=== PATIENT | female | born 1985 | race Caucasian/White ===

== ENCOUNTER → 2018-08-04 08:14 | Outpatient (CLI) | payer OTHER, MEDICAID, SELFPAY ==
[2018-08-04 11:14] LABS: Thyroid Stimulating Hormone 0.68 uIU/mL (0.47-4.68)
[2018-08-06 13:19] LABS: 1 25 Dihydroxy Vitamin D 25 pg/mL (18-72)
== END ==
PROVIDERS: PCP Family Medicine; Visit Provider Family Medicine
DX: E55.9 Vitamin D deficiency, unspecified (principal); E03.9 Hypothyroidism, unspecified
CPT/HCPCS: 36415; 82652; 84443

== ENCOUNTER → 2018-08-16 16:37 | Outpatient (CLI) | payer OTHER, MEDICAID, SELFPAY | PROVIDERS: PCP Family Medicine; Visit Provider Family Medicine | DX: Z01.84 Encounter for antibody response examination (principal) | CPT/HCPCS: 36415; 86787 ==

== ENCOUNTER → 2019-07-13 07:47 | Outpatient (CLI) | payer OTHER, SELFPAY ==
[2019-07-13 08:21] LABS: Add Manual Diff / Slide Review NO; Basophils Absolute Auto 0 /uL (0-100); Basophils Percent Auto 0.3 % (0-2); Eosinophils Absolute Auto 200 /uL (0-450); Eosinophils Percent Auto 3.3 % (2-4); Hematocrit 41.1 % (36-46); Hemoglobin 13.9 g/dL (12.0-16.0); Lymphocytes Absolute Auto 1900 /uL (1100-4500); Lymphocytes Percent Auto 35.6 % (25-40); Mean Corpuscular HGB Conc 33.8 % (30-36); Mean Corpuscular Hemoglobin 30.3 PG (26-34); Mean Corpuscular Volume 89.6 fL (80-100); Monocytes Absolute Auto 400 /uL (0-900); Monocytes Percent Auto 7.4 % (3-14); Neutrophils Absolute Auto 2800 /uL (1500-7000); Neutrophils Percent Auto 53.4 % (50-75); Platelet Count 214 X10^3/uL (150-400); Red Blood Cell Count 4.58 X10^6/uL (4.0-5.2); Red Cell Distribution Width 13.2 % (11.6-14.8); White Blood Cell Count 5.3 X10^3/uL (4.5-11.0)
[2019-07-13 08:51] LABS: Alanine Aminotransferase 17 IU/L (<35); Albumin 4.4 g/dL (3.5-5.0); Albumin Globulin Ratio 1.6 (1.0-2.8); Alkaline Phosphatase 35 U/L (38-126); Aspartate Aminotransferase 26 IU/L (14-36); BUN Creatinine Ratio 21.7 (6-22); Bilirubin Total 0.5 mg/dL (0.2-1.3); Blood Urea Nitrogen 13 mg/dL (7-17); Calcium 9.3 mg/dL (8.4-10.2); Carbon Dioxide 31 mmol/L (22-32); Chloride 102 mmol/L (98-107); Cholesterol 192 mg/dL (140-199); Estimated Glomerular Filt Rate > 60.0 mL/min (>60); Globulin 2.8 g/dL (1.7-4.1); Glucose 98 mg/dL (70-100); HDL Cholesterol 63 mg/dL (40-60); HEMOLYSIS < 15 (0-50); LDL Cholesterol Calculated 115 mg/dL (<100); Potassium 4.5 mmol/L (3.4-5.1); Sodium 140 mmol/L (137-145); Total Protein 7.2 g/dL (6.3-8.2); Triglycerides 69 mg/dL (35-150)
[2019-07-13 09:13] LABS: Free T3, Triiodothyronine Free 3.17 pg/mL (2.77-5.27); Free T4, Direct Thyroxine 1.12 ng/dL (0.78-2.19)
[2019-07-13 09:27] LABS: Thyroid Stimulating Hormone 5.17 uIU/mL (0.47-4.68)
== END ==
PROVIDERS: PCP Family Medicine; Visit Provider Family Medicine
DX: E03.9 Hypothyroidism, unspecified (principal)
CPT/HCPCS: 36415; 80053; 80061; 84439; 84443; 84481; 85025

== ENCOUNTER → 2020-03-23 10:28 | Outpatient (CLI) | payer OTHER, SELFPAY ==
[2020-03-23 11:10] LABS: Add Manual Diff / Slide Review NO; Basophils Absolute Auto 0 /uL (0-100); Basophils Percent Auto 0.5 % (0-2); Eosinophils Absolute Auto 100 /uL (0-450); Eosinophils Percent Auto 1.8 % (2-4); Hematocrit 40.4 % (36-46); Hemoglobin 13.5 g/dL (12.0-16.0); Lymphocytes Absolute Auto 2100 /uL (1100-4500); Lymphocytes Percent Auto 39.5 % (25-40); Mean Corpuscular HGB Conc 33.4 % (30-36); Mean Corpuscular Hemoglobin 29.2 PG (26-34); Mean Corpuscular Volume 87.3 fL (80-100); Monocytes Absolute Auto 400 /uL (0-900); Monocytes Percent Auto 8.1 % (3-14); Neutrophils Absolute Auto 2700 /uL (1500-7000); Neutrophils Percent Auto 50.1 % (50-75); Platelet Count 218 X10^3/uL (150-400); Red Blood Cell Count 4.63 X10^6/uL (4.0-5.2); Red Cell Distribution Width 12.8 % (11.6-14.8); White Blood Cell Count 5.4 X10^3/uL (4.5-11.0)
[2020-03-23 11:40] LABS: Cholesterol 167 mg/dL (140-199); Glucose 94 mg/dL (70-100); HDL Cholesterol 57 mg/dL (40-60); LDL Cholesterol Calculated 97 mg/dL (<100); Triglycerides 67 mg/dL (35-150)
[2020-03-26 15:45] LABS: Thyroid Stimulating Hormone < 0.015 uIU/mL (0.47-4.68)
== END ==
PROVIDERS: PCP Family Medicine; Referring Provider Family Medicine; Visit Provider Family Medicine
DX: Z13.220 Encounter for screening for lipoid disorders (principal); E55.9 Vitamin D deficiency, unspecified; Z13.1 Encounter for screening for diabetes mellitus; Z13.0 Encounter for screening for diseases of the blood and blood-forming organs and certain disorders involving the immune mechanism
CPT/HCPCS: 36415; 80061; 82306; 82947; 84443; 85025

== ENCOUNTER → 2020-04-09 10:34 | Outpatient (CLI) | payer OTHER, SELFPAY ==
[2020-04-11 22:36] LABS: QuantiFERON Mitogen Value 6.68 IU/mL (.); QuantiFERON Nil Value 0.11 IU/mL (.); QuantiFERON TB Gold Plus Negative (Negative); QuantiFERON TB1 Ag Value 0.23 IU/mL (.); QuantiFERON TB2 Ag Value 0.12 IU/mL (.)
== END ==
PROVIDERS: PCP Family Medicine; Referring Provider Family Medicine; Visit Provider Family Medicine
DX: Z11.9 Encounter for screening for infectious and parasitic diseases, unspecified (principal); Z02.1 Encounter for pre-employment examination
CPT/HCPCS: 36415; 86480

== ENCOUNTER → 2020-06-13 11:38 | Outpatient (CLI) | payer OTHER, SELFPAY ==
[2020-06-13 14:52] LABS: Thyroid Stimulating Hormone < 0.015 uIU/mL (0.47-4.68)
== END ==
PROVIDERS: PCP Family Medicine; Referring Provider Family Medicine; Visit Provider Family Medicine
DX: E03.9 Hypothyroidism, unspecified (principal)
CPT/HCPCS: 36415; 84443

== ENCOUNTER → 2020-07-02 12:29 | Outpatient (CLI) | payer OTHER, SELFPAY ==
[2020-07-02 13:11] LABS: Add Manual Diff / Slide Review NO; Basophils Absolute Auto 0 /uL (0-100); Basophils Percent Auto 0.2 % (0-2); Eosinophils Absolute Auto 100 /uL (0-450); Eosinophils Percent Auto 0.9 % (2-4); Hematocrit 40.2 % (36-46); Hemoglobin 13.3 g/dL (12.0-16.0); Lymphocytes Absolute Auto 1900 /uL (1100-4500); Lymphocytes Percent Auto 28.8 % (25-40); Mean Corpuscular HGB Conc 33.1 % (30-36); Mean Corpuscular Hemoglobin 29.2 PG (26-34); Mean Corpuscular Volume 88.3 fL (80-100); Monocytes Absolute Auto 500 /uL (0-900); Monocytes Percent Auto 7.2 % (3-14); Neutrophils Absolute Auto 4100 /uL (1500-7000); Neutrophils Percent Auto 62.9 % (50-75); Platelet Count 213 X10^3/uL (150-400); Red Blood Cell Count 4.55 X10^6/uL (4.0-5.2); Red Cell Distribution Width 13.6 % (11.6-14.8); White Blood Cell Count 6.5 X10^3/uL (4.5-11.0)
[2020-07-02 13:20] LABS: Appearance Urine UA CLEAR; Bilirubin Urine UA NEGATIVE (NEGATIVE); Color Urine UA YELLOW; Glucose Urine UA NEGATIVE (Negative); Ketones Urine UA NEGATIVE (NEGATIVE); Leukocyte Esterase Urine UA NEGATIVE (NEGATIVE); Nitrite Urine UA NEGATIVE (Negative); Occult Blood Urine UA NEGATIVE (Negative); Protein Urine UA NEGATIVE (Negative); Specific Gravity Urine UA <=1.005 (1.000-1.035); Urobilinogen Urine UA 0.2 E.U./dL (0.2)
[2020-07-02 14:06] LABS: Hepatitis B Surface Antigen NEGATIVE s/c (NEGATIVE); Rubella Antibody IgG 10.9 IU/mL (>15)
[2020-07-02 14:30] LABS: HIV 1 & 2 Ab/Ag 4th Gen Combo NEGATIVE (NEGATIVE); Hep C Virus Ab w/Reflex Quant NEGATIVE s/c (NEGATIVE)
[2020-07-03 06:09] LABS: RPR Screen Non Reactive (Non Reactive)
[2020-07-03 10:36] LABS: Varicella IgG Antibody 542 index (Immune >165)
== END ==
PROVIDERS: PCP Family Medicine; Referring Provider Family Medicine; Visit Provider Family Medicine
DX: Z34.81 Encounter for supervision of other normal pregnancy, first trimester (principal)
CPT/HCPCS: 36415; 80055; 81003; 86787; 86803; 86850; 86900; 86901; 87086; 87389

== ENCOUNTER → 2020-07-17 08:53 | Outpatient (CLI) | payer OTHER, SELFPAY ==
[2020-07-18 02:52] LABS: Triiodothyronine T3 Total 129 ng/dL (71-180)
[2020-07-18 22:36] LABS: Anti Thyroglobulin Antibody 1.2 IU/mL (0.0-0.9); Thyroid Peroxidase Antibodies 10 IU/mL (0-34)
== END ==
PROVIDERS: PCP Family Medicine; Referring Provider Family Medicine; Visit Provider Family Medicine
DX: E03.9 Hypothyroidism, unspecified (principal)
CPT/HCPCS: 36415; 84436; 84443; 84480; 86376; 86800

== ENCOUNTER → 2020-08-06 10:03 | Outpatient (CLI) | payer OTHER, SELFPAY ==
[2020-08-06 10:32] LABS: COVID19 -Nasal RAPID POSITIVE (Negative)
== END ==
PROVIDERS: PCP Family Medicine; Visit Provider Family Medicine
DX: U07.1 COVID-19 (principal)
CPT/HCPCS: 87635

== ENCOUNTER → 2020-08-15 09:08 | Outpatient (CLI) | payer OTHER, SELFPAY ==
[2020-08-15 10:42] LABS: Thyroid Stimulating Hormone 3.62 uIU/mL (0.47-4.68)
== END ==
PROVIDERS: PCP Family Medicine; Referring Provider Family Medicine; Visit Provider Family Medicine
DX: E03.9 Hypothyroidism, unspecified (principal)
CPT/HCPCS: 36415; 84443

== ENCOUNTER → 2020-09-10 11:12 | Outpatient (CLI) | payer OTHER, SELFPAY | PROVIDERS: PCP Family Medicine; Referring Provider Family Medicine; Visit Provider Family Medicine | DX: O09.529 Supervision of elderly multigravida, unspecified trimester (principal); Z3A.18 18 weeks gestation of pregnancy | CPT/HCPCS: 36415; 81420 ==

== ENCOUNTER → 2020-09-27 09:15 | Outpatient (CLI) | payer OTHER, SELFPAY ==
--- NOTE | 2020-09-27 09:16 | DI.US.S_ITS ---
PROCEDURE: US OB >= 14 WEEKS FETUS INDICATIONS: ANATOMY OUTSIDE/PRIOR DATING DATA: Last menstrual period (LMP): Unknown. LMP-based estimated date of delivery (NESTOR): Unknown. First dating scan (date and location): 09/27/2020. Estimated date of delivery (NESTOR) from first dating scan: 02/05/2021. TECHNIQUE: Real-time scanning was performed of the fetus, with image documentation and biometric measurements. Endovaginal scanning: Not performed COMPARISON: None. FINDINGS: General: A single living intrauterine gestation is present. Presentation: Variable. Placenta: Placental position is posterior, without previa. Amniotic fluid index: 12.9 cm, normal range is 5-24 cm. Largest pocket 3.6 cm. heart rate: 152 beats per minute. Maternal cervical canal: 3.7 cm long. Normal lower limit is 2.5 cm. biometrics: Biparietal diameter: 5.2 cm, 21 weeks 4 days Head circumference: 18.7 cm, 21 weeks 0 days Abdominal circumference: 16.7 cm, 21 weeks 5 days Femur length: 3.5 cm, 20 weeks 6 days Estimated gestational age from initial scan: not applicable. Composite gestational age from present scan: 21 weeks 2 days Estimated weight and percentile: 415 g. Measurement variability for biometric dating: +/- 7 days from 14 weeks to 15 weeks 6 days gestation, +/- 10 days from 16 weeks to 21 weeks 6 days gestation, +/- 2 weeks from 22 weeks to 27 weeks 6 days gestation, +/- 3 weeks for 28 weeks gestation or later. weight reference: 4500 g or EFW >90/95% is considered macrosomia or large for gestational age. EFW <10% is small for gestational age. EFW 5% or less is considered intra-uterine growth restriction. Anatomic survey: Neuro: Ventricles are non-dilated at less than 10 mm. Cisterna magna is normal at 3-11 mm. Cerebellum is normal in size and morphology. Nuchal skin fold: Normal at less than 6 mm between 14-21 weeks gestational age. Face: Nose and lips, facial profile are normal. Spine: No evidence for spina bifida. Heart: 4-chambered heart is present, with normal ventricular outflow tracts. Diaphragm: Diaphragm is intact. Stomach: Left-sided stomach is present. Kidneys: No hydronephrosis. Normal is less than 5 mm in 2nd trimester, less than 7 mm in 3rd trimester. Cord: 3-vessel cord has orthotopic insertion. Bladder: Normal in size. Extremities: All 4 extremities identified. IMPRESSION: 1. Banks living intrauterine at 21 weeks 2 days based on today's ultrasound. 2. Normal placenta and amniotic fluid. 3. Normal and complete anatomic survey. Dictated by: Junaid Bose M.D. on 09/27/2020 at 11:27 Approved by: Junaid Bose M.D. on 09/27/2020 at 11:31
== END ==
PROVIDERS: PCP Family Medicine; Referring Provider Family Medicine; Visit Provider Family Medicine
DX: Z34.82 Encounter for supervision of other normal pregnancy, second trimester (principal); Z3A.20 20 weeks gestation of pregnancy
CPT/HCPCS: 76811

== ENCOUNTER → 2020-11-08 09:24 | Outpatient (CLI) | payer OTHER, SELFPAY ==
[2020-11-08 11:40] LABS: Hematocrit 35.4 % (36-46)
[2020-11-08 12:09] LABS: GTT (PREG) 1 Hour PP 50gm Dose 104 mg/dL (76-139)
[2020-11-08 12:54] LABS: Thyroid Stimulating Hormone 3.78 uIU/mL (0.47-4.68)
== END ==
PROVIDERS: PCP Family Medicine; Referring Provider Family Medicine; Visit Provider Family Medicine
DX: Z34.90 Encounter for supervision of normal pregnancy, unspecified, unspecified trimester (principal); E03.9 Hypothyroidism, unspecified
CPT/HCPCS: 82950; 84443; 85014; 85018

== ENCOUNTER → 2020-11-13 15:38 | Outpatient (CLI) | payer OTHER, SELFPAY ==
--- NOTE | 2020-11-13 15:39 | DI.US.S_ITS ---
PROCEDURE: US OB LIMITED INDICATIONS: SIZE > DATES OUTSIDE/PRIOR DATING DATA: First dating scan (date and location): 09/27/2020 . Estimated date of delivery (NESTOR) from first dating scan: 02/05/2021 . TECHNIQUE: Real-time scanning was performed of the fetus, with image documentation and biometric measurements. Endovaginal scanning: No COMPARISON: [facility], , OB >= 14 WEEKS FETUS, 09/27/2020, 9:38. FINDINGS: General: A single living intrauterine gestation is present. Presentation: Variable. Placenta: Placental position is posterior , without previa. Amniotic fluid index: 20.6 cm, normal range is 5-24 cm. heart rate: 135 beats per minute. Maternal cervical canal: 4.1 cm long. Normal lower limit is 2.5 cm. biometrics: Biparietal diameter: 29 weeks 3 days Head circumference: 29 weeks 5 Abdominal circumference: 32 weeks 2 days Femur length: 29 weeks Estimated gestational age from initial scan: 28 weeks Composite gestational age from present scan: 30 weeks 1 day Estimated weight and percentile: 1644 g; greater than the 99th percentile Measurement variability for biometric dating: +/- 7 days from 14 weeks to 15 weeks 6 days gestation, +/- 10 days from 16 weeks to 21 weeks 6 days gestation, +/- 2 weeks from 22 weeks to 27 weeks 6 days gestation, +/- 3 weeks for 28 weeks gestation or later. weight reference: 4500 g or EFW >90/95% is considered macrosomia or large for gestational age. EFW <10% is small for gestational age. EFW 5% or less is considered intra-uterine growth restriction. Other: Not applicable. IMPRESSION: Single living IUP redemonstrated and estimated weight is greater than the 99th percentile and macrosomia cannot be excluded. Recommend close clinical correlation and follow-up. Dictated by: Rayshawn DAVIS Interpreted: Latasha Perez MD on 11/13/2020 at 16:25 Approved by: Latasha Perez M.D. on 11/13/2020 at 17:02
== END ==
PROVIDERS: PCP Family Medicine; Referring Provider Family Medicine; Visit Provider Family Medicine
DX: O26.843 Uterine size-date discrepancy, third trimester (principal); Z3A.30 30 weeks gestation of pregnancy
CPT/HCPCS: 76815

== ENCOUNTER → 2020-11-30 09:59 | Outpatient (CLI) | payer OTHER, SELFPAY ==
[2020-11-30 11:17] LABS: Thyroid Stimulating Hormone 4.24 uIU/mL (0.47-4.68)
== END ==
PROVIDERS: PCP Family Medicine; Referring Provider Family Medicine; Visit Provider Family Medicine
DX: E03.9 Hypothyroidism, unspecified (principal)
CPT/HCPCS: 36415; 84443

== ENCOUNTER → 2020-12-31 10:47 | Outpatient (CLI) | payer OTHER, SELFPAY ==
[2021-01-01 07:49] LABS: Strep Grp B PCR POS for Grp B Strep
== END ==
PROVIDERS: PCP Family Medicine; Visit Provider Family Medicine
DX: Z34.90 Encounter for supervision of normal pregnancy, unspecified, unspecified trimester (principal); Z3A.35 35 weeks gestation of pregnancy
CPT/HCPCS: 87653

== ENCOUNTER 2021-01-07 10:59 | Observation (INO) | payer OTHER, SELFPAY ==
--- NOTE | 2021-01-07 11:39 | P.TNLD_ITS ---
Visit Information Visit Information Date of evaluation: 01/07/21 Primary OB Provider: Rosa Kinsey Reason for Evaluation: Yes non-stress test Vital Signs Vital Signs: 35yo at 36w1d here for NST for AMA. PFSH Medical History (Updated 01/07/21 @ 11:40 by Rosa Kinsey MD) Hypothyroidism (~02/2005) depression (~02/2005) Vitamin D deficiency (01/14/16) Surgical History (Updated 06/14/20 @ 19:29 by Meg Norwood) Anesthesia History of third molar tooth extraction (2010) Status post knee surgery (2009) Family History (Updated 06/29/20 @ 10:06 by Elizabeth Wilson RN) Father Diabetes mellitus Congestive heart failure Mother Hypertension Brother Hypertension Obesity Grandfather Stroke Alzheimer's disease Grandmother Family estrangement Grandmother Heart disease Grandfather Family estrangement Social History marital status: number of children: 2 household members: spouse lives independently: Yes caregiver/support person: No housing: house pets and animals: Yes (2 dogs, 2 cats. Feels they are safe w baby.) education level: college occupational status: student current occupational exposures/hazards: No elda/hinduism: Sabianist special elda needs: No seatbelt use: always Smoking Status: Never smoker second hand exposure: No alcohol intake: former substance use type: does not use during the past year weight has: decreased > 10 lbs well-balanced diet: daily or most days Type(s) of exercise: regular exercise frequency: 3-4 times per week Evaluation Evaluation Baseline heart rate: 120 Variability: Moderate (11-25) monitor accelerations: Present Monitor Decelerations: Absent Category of Tracing: Reactive Diagnosis, Plan/Disposition Final Diagnosis (1) Advanced maternal age (AMA) in : Status: Acute (2) 36 weeks gestation of : Status: Acute Plan/Disposition Plan: 35yo at 36w1d here for NST for AMA. Reactive. Continue weekly NST as per MFM recs. OB Disposition: home
== END 2021-01-07 11:45 | disposition home or self-care (01) ==
LOC: LABOR 11:00
PROVIDERS: Admitting Provider Family Medicine; PCP Family Medicine; Referring Provider Family Medicine; Visit Provider Family Medicine
DX: O09.523 Supervision of elderly multigravida, third trimester (principal); Z3A.36 36 weeks gestation of pregnancy
CPT/HCPCS: 59025; G0378; G0379

== ENCOUNTER → 2021-01-08 09:14 | Outpatient (CLI) | payer OTHER, SELFPAY ==
[2021-01-08 09:54] LABS: Add Manual Diff / Slide Review NO; Basophils Absolute Auto 0 /uL (0-100); Basophils Percent Auto 0.2 % (0-2); Eosinophils Absolute Auto 100 /uL (0-450); Eosinophils Percent Auto 0.8 % (2-4); Hematocrit 33.3 % (36-46); Hemoglobin 11.3 g/dL (12.0-16.0); Lymphocytes Absolute Auto 1300 /uL (1100-4500); Lymphocytes Percent Auto 19.8 % (25-40); Mean Corpuscular HGB Conc 33.9 % (30-36); Mean Corpuscular Hemoglobin 28.5 PG (26-34); Mean Corpuscular Volume 83.9 fL (80-100); Monocytes Absolute Auto 600 /uL (0-900); Monocytes Percent Auto 8.9 % (3-14); Neutrophils Absolute Auto 4700 /uL (1500-7000); Neutrophils Percent Auto 70.3 % (50-75); Platelet Count 162 X10^3/uL (150-400); Red Blood Cell Count 3.98 X10^6/uL (4.0-5.2); Red Cell Distribution Width 13.4 % (11.6-14.8); White Blood Cell Count 6.7 X10^3/uL (4.5-11.0)
[2021-01-08 10:40] LABS: Alanine Aminotransferase 12 IU/L (<35); Albumin 3.1 g/dL (3.5-5.0); Albumin Globulin Ratio 1.1 (1.0-2.8); Alkaline Phosphatase 70 U/L (38-126); Aspartate Aminotransferase 22 IU/L (14-36); BUN Creatinine Ratio 15.6 (6-22); Bilirubin Total 0.2 mg/dL (0.2-1.3); Blood Urea Nitrogen 7 mg/dL (7-17); Calcium 9.1 mg/dL (8.4-10.2); Carbon Dioxide 22 mmol/L (22-32); Chloride 105 mmol/L (98-107); Estimated Glomerular Filt Rate > 60.0 mL/min (>60); Globulin 2.7 g/dL (1.7-4.1); Glucose 88 mg/dL (70-100); HEMOLYSIS < 15 (0-50); Potassium 3.9 mmol/L (3.4-5.1); Sodium 133 mmol/L (137-145); Total Protein 5.8 g/dL (6.3-8.2)
== END ==
PROVIDERS: PCP Family Medicine; Referring Provider Family Medicine; Visit Provider Family Medicine
DX: Z34.93 Encounter for supervision of normal pregnancy, unspecified, third trimester (principal); Z82.49 Family history of ischemic heart disease and other diseases of the circulatory system
CPT/HCPCS: 36415; 80053; 85025

== ENCOUNTER 2021-01-14 11:00 | Outpatient (CLI) | payer OTHER, SELFPAY ==
--- NOTE | 2021-01-14 11:03 | PM.OBTRLD ---
Visit Information Visit Information Date of evaluation: 01/14/21 Primary OB Provider: Rosa Kinsey Reason for Evaluation: Yes non-stress test non-stress test reason: other Comments/Additional reasons for admission: 35yo at 37w1d here for NST for AMA. [facility] Medical History (Updated 01/14/21 @ 10:38 by Rosa Kinsey MD) Hypothyroidism (~02/2005) depression (~02/2005) Vitamin D deficiency (01/14/16) Surgical History (Updated 06/14/20 @ 19:29 by Meg Norwood) Anesthesia History of third molar tooth extraction (2010) Status post knee surgery (2009) Family History (Updated 06/29/20 @ 10:06 by Elizabeth Wilson RN) Father Diabetes mellitus Congestive heart failure Mother Hypertension Brother Hypertension Obesity Grandfather Stroke Alzheimer's disease Grandmother Family estrangement Grandmother Heart disease Grandfather Family estrangement Social History marital status: number of children: 2 household members: spouse lives independently: Yes caregiver/support person: No housing: house pets and animals: Yes (2 dogs, 2 cats. Feels they are safe w baby.) education level: college occupational status: student current occupational exposures/hazards: No elda/latter-day: Sabianist special elda needs: No seatbelt use: always Smoking Status: Never smoker second hand exposure: No alcohol intake: former substance use type: does not use during the past year weight has: decreased > 10 lbs well-balanced diet: daily or most days Type(s) of exercise: regular exercise frequency: 3-4 times per week Evaluation Evaluation Baseline heart rate: 120 Variability: Moderate (11-25) monitor accelerations: Present Monitor Decelerations: Absent Category of Tracing: Reactive Diagnosis, Plan/Disposition Final Diagnosis (1) 37 weeks gestation of : Status: Acute (2) Advanced maternal age (AMA) in : Status: Acute Plan/Disposition Plan: 35yo at 37w1d here for NST for AMA. Reactive. Continue weekly NST as per M recs. OB Disposition: home
== END 2021-01-14 11:30 | disposition home or self-care (01) ==
LOC: OB 01-17 10:36
PROVIDERS: PCP Family Medicine; Referring Provider Family Medicine; Visit Provider Family Medicine
DX: O09.523 Supervision of elderly multigravida, third trimester (principal); Z3A.37 37 weeks gestation of pregnancy
CPT/HCPCS: 59025; 82570; 84156; G0378; G0379

== ENCOUNTER 2021-01-21 10:49 | Outpatient (CLI) | payer OTHER, SELFPAY ==
--- NOTE | 2021-01-21 11:39 | P.TNLD_ITS ---
Visit Information Visit Information Date of evaluation: 01/21/21 Primary OB Provider: Rosa Kinsey Reason for Evaluation: Yes non-stress test Comments/Additional reasons for admission: 35yo at 38w1d here for NST for AMA. [facility] Medical History (Updated 01/21/21 @ 10:42 by Rosa Kinsey MD) Hypothyroidism (~02/2005) depression (~02/2005) Vitamin D deficiency (01/14/16) Surgical History (Updated 06/14/20 @ 19:29 by Meg Norwood) Anesthesia History of third molar tooth extraction (2010) Status post knee surgery (2009) Family History (Updated 06/29/20 @ 10:06 by Elizabeth Wilson RN) Father Diabetes mellitus Congestive heart failure Mother Hypertension Brother Hypertension Obesity Grandfather Stroke Alzheimer's disease Grandmother Family estrangement Grandmother Heart disease Grandfather Family estrangement Social History marital status: number of children: 2 household members: spouse lives independently: Yes caregiver/support person: No housing: house pets and animals: Yes (2 dogs, 2 cats. Feels they are safe w baby.) education level: college occupational status: student current occupational exposures/hazards: No elda/holiness: Jain special elda needs: No seatbelt use: always Smoking Status: Never smoker second hand exposure: No alcohol intake: former substance use type: does not use during the past year weight has: decreased > 10 lbs well-balanced diet: daily or most days Type(s) of exercise: regular exercise frequency: 3-4 times per week Evaluation Evaluation Baseline heart rate: 125 Variability: Moderate (11-25) monitor accelerations: Present Monitor Decelerations: Absent Category of Tracing: Reactive Diagnosis, Plan/Disposition Final Diagnosis (1) 38 weeks gestation of : Status: Acute (2) Advanced maternal age (AMA) in : Status: Acute Plan/Disposition Plan: 35yo at 37w1d here for NST for AMA. Reactive NST. OB Disposition: home
== END 2021-01-21 11:44 | disposition home or self-care (01) ==
LOC: LABOR 11:18 → OB 01-22 06:44
PROVIDERS: PCP Family Medicine; Referring Provider Family Medicine; Visit Provider Family Medicine
DX: O09.523 Supervision of elderly multigravida, third trimester (principal); Z3A.37 37 weeks gestation of pregnancy
CPT/HCPCS: 59025; G0378; G0379

== ENCOUNTER 2021-01-28 11:03 | Outpatient (CLI) | payer OTHER, SELFPAY ==
--- NOTE | 2021-01-28 11:30 | PM.OBTRLD ---
Visit Information Visit Information Date of evaluation: 01/28/21 Primary OB Provider: Rosa Kinsey Reason for Evaluation: Yes non-stress test non-stress test reason: other Comments/Additional reasons for admission: 35yo at 39w1d here for NST for AMA. [facility] Medical History (Updated 01/28/21 @ 16:54 by Rosa Kinsey MD) Hypothyroidism (~02/2005) depression (~02/2005) Vitamin D deficiency (01/14/16) Surgical History (Updated 06/14/20 @ 19:29 by Meg Norwood) Anesthesia History of third molar tooth extraction (2010) Status post knee surgery (2009) Family History (Updated 06/29/20 @ 10:06 by Elizabeth Wilson RN) Father Diabetes mellitus Congestive heart failure Mother Hypertension Brother Hypertension Obesity Grandfather Stroke Alzheimer's disease Grandmother Family estrangement Grandmother Heart disease Grandfather Family estrangement Social History marital status: number of children: 2 household members: spouse lives independently: Yes caregiver/support person: No housing: house pets and animals: Yes (2 dogs, 2 cats. Feels they are safe w baby.) education level: college occupational status: student current occupational exposures/hazards: No elda/spiritism: Yazidism special elda needs: No seatbelt use: always Smoking Status: Never smoker second hand exposure: No alcohol intake: former substance use type: does not use during the past year weight has: decreased > 10 lbs well-balanced diet: daily or most days Type(s) of exercise: regular exercise frequency: 3-4 times per week Evaluation Evaluation Baseline heart rate: 120 Variability: Moderate (11-25) monitor accelerations: Present Monitor Decelerations: Absent Category of Tracing: Reactive Diagnosis, Plan/Disposition Final Diagnosis (1) Advanced maternal age (AMA) in : Status: Acute (2) 39 weeks gestation of : Status: Acute Plan/Disposition Plan: 35yo at 39w1d here for NST for AMA. NST reactive. F/U as scheduled. OB Disposition: home
== END 2021-01-28 12:00 | disposition home or self-care (01) ==
LOC: LABOR 11:32 → OB 01-29 07:22
PROVIDERS: PCP Family Medicine; Referring Provider Family Medicine; Visit Provider Family Medicine
DX: O09.523 Supervision of elderly multigravida, third trimester (principal); Z3A.39 39 weeks gestation of pregnancy
CPT/HCPCS: 59025; G0378; G0379

== ENCOUNTER 2021-02-05 17:57 | Inpatient (IN) | payer OTHER, SELFPAY ==
[2021-02-05] MEDS: miSOPROStoL 25 MCG TABLET VAG ×2 (18:44→23:50)
[2021-02-05] MEDS: LACTATED RINGERS 1,000 ML 100 ML IV (18:57)
[2021-02-05 19:04] LABS: Add Manual Diff / Slide Review NO; Basophils Absolute Auto 0 /uL (0-100); Basophils Percent Auto 0.4 % (0-2); Eosinophils Absolute Auto 100 /uL (0-450); Eosinophils Percent Auto 0.7 % (2-4); Hematocrit 34.9 % (36-46); Hemoglobin 11.5 g/dL (12.0-16.0); Lymphocytes Absolute Auto 1500 /uL (1100-4500); Lymphocytes Percent Auto 17.3 % (25-40); Mean Corpuscular HGB Conc 32.8 % (30-36); Mean Corpuscular Hemoglobin 27.1 PG (26-34); Mean Corpuscular Volume 82.6 fL (80-100); Monocytes Absolute Auto 700 /uL (0-900); Monocytes Percent Auto 7.7 % (3-14); Neutrophils Absolute Auto 6600 /uL (1500-7000); Neutrophils Percent Auto 73.9 % (50-75); Platelet Count 188 X10^3/uL (150-400); Red Blood Cell Count 4.23 X10^6/uL (4.0-5.2); Red Cell Distribution Width 14.3 % (11.6-14.8); White Blood Cell Count 8.9 X10^3/uL (4.5-11.0)
[2021-02-05 20:05] VITALS: BP 133/74
[2021-02-05 21:24] LABS: COVID19 - ADMIT (NP swab/PCR) Negative (Negative)
[2021-02-06] MEDS: PENICILLIN G POTASSIUM 5,000,000 UNIT in DEXTROSE 5% IN WATER 250 ML IV (03:51)
[2021-02-06] MEDS: miSOPROStoL 25 MCG TABLET VAG (03:52)
--- NOTE | 2021-02-06 07:09 | PM.OBHP.1 ---
OB HPI Date/Time Date of admission: 02/05/21 Date Patient Seen: 02/06/21 History of Present Condition Chief complaint: : 3 Para: 2 Estimated Date of Delivery: 02/03/21 Estimated Gestational Age (weeks): 40w3d Narrative: Betzaida Stroud is a 35 year old at 40w3d here for IOL for AMA as per MFM recommendations. Pt denies LOF, vaginal bleeding, significant contractions. She is feeling her baby move regularly. The pts has been complicated by hypothyroidism, controlled by Levothyroxine. Fetus was noted to be > 99th percentile at 27wk ultrasound completed due to size measuring > dates. M recommended changing the pts due date to 02/03 from 02/08, with normalization of percentiles with the change. Indications Indication for induction OB: other (AMA) History of Present care: good care, initiated at week # (8) and pounds weight gain (58) Dating criteria: based on 1st trimester US only Ultrasounds: normal 1st trimester US and normal mid trimester US Obstetrical complications: other (AMA; LGA - resolved) Medical complications: other (hypothyroidism) Preadmission Labs Blood type: B (+) positive -: Antibody screen: negative, GBS status: positive, HBsAG: negative, HIV: negative and RPR/VDLR: negative -: Rubella: not immune and Varicella: immune HCT: 33.3 HCAB: negative Cell-free DNA: Negative Urine: Negative 1 hr GTT: 104 Prior (ies) History: 01/22/05 - at 40w4d, [id number] female 07/13/15 - at 38w, 7lb male Evaluation Evaluation Baseline heart rate: 120 Variability: Moderate (11-25) monitor accelerations: Present Monitor Decelerations: Absent Status: Category l Cervical dilation (cm): 2 Cervical effacement (%): 80 station: -2 Laboratory results: Laboratory Tests 02/05/21 02/05/21 02/05/21 18:35 18:35 19:25 WBC 8.9 RBC 4.23 Hgb 11.5 L Hct 34.9 L MCV 82.6 MCH 27.1 MCHC 32.8 RDW 14.3 Plt Count 188 Neut % (Auto) 73.9 Lymph % (Auto) 17.3 L Stanley % (Auto) 7.7 Eos % (Auto) 0.7 L Baso % (Auto) 0.4 Neut # (Auto) 6600 Lymph # (Auto) 1500 Stanley # (Auto) 700 Eos # (Auto) 100 Baso # (Auto) 0 SARS-CoV-2 (PCR) Negative Blood Type B Positive Antibody Screen Negative Comments: irregular contractions [facility] Medical History (Updated 02/05/21 @ 10:57 by Rosa Kinsey MD) Hypothyroidism (~02/2005) depression (~02/2005) Vitamin D deficiency (01/14/16) Surgical History (Updated 06/14/20 @ 19:29 by eMg Norwood) Anesthesia History of third molar tooth extraction (2010) Status post knee surgery (2009) Family History (Updated 06/29/20 @ 10:06 by Elizabeth Wilson RN) Father Diabetes mellitus Congestive heart failure Mother Hypertension Brother Hypertension Obesity Grandfather Stroke Alzheimer's disease Grandmother Family estrangement Grandmother Heart disease Grandfather Family estrangement Social History marital status: number of children: 2 household members: spouse lives independently: Yes caregiver/support person: No housing: house pets and animals: Yes (2 dogs, 2 cats. Feels they are safe w baby.) education level: college occupational status: student current occupational exposures/hazards: No elda/taoist: Holiness special elda needs: No seatbelt use: always Smoking Status: Never smoker second hand exposure: No alcohol intake: former substance use type: does not use during the past year weight has: decreased > 10 lbs well-balanced diet: daily or most days Type(s) of exercise: regular exercise frequency: 3-4 times per week Meds Home Medications and Allergies Home Medications Medication Instructions Recorded Confirmed Type cholecalciferol (vitamin D3) 25 25 mcg PO DAILY 06/29/20 02/05/21 History mcg (1,000 unit) capsule prenat.vits,srinivasa,lev-uohy-vsrka 1 tab PO DAILY 06/29/20 02/05/21 History levothyroxine 125 mcg tablet See Rx Instructions .ROUTE 01/31/21 02/05/21 Rx .COMPLEX #30 tab Allergies Allergy/AdvReac Type Severity Reaction Status Date / Time No Known Drug Allergies Allergy Verified 08/29/20 09:26 Exam Const General: cooperative, healthy appearing and comfortable Orientation: alert, awake and oriented x3 Resp Effort & Inspection: normal respiratory effort Auscultation: clear to auscultation bilaterally Cardio Rate: regular rate Rhythm: regular rhythm Heart Sounds: S1 normal, S2 normal and no murmurs GI Inspection: non-distended Palpation: soft and No tender Other: gravid Presentation: vertex Estimated Weight (lbs): 8 Extrem General: no clubbing, cyanosis or edema Objective Labs Result Diagrams: 02/05/21 18:35 Labs: Laboratory Results - last 24 hr 02/05/21 02/05/21 02/05/21 18:35 18:35 19:25 WBC 8.9 RBC 4.23 Hgb 11.5 L Hct 34.9 L MCV 82.6 MCH 27.1 MCHC 32.8 RDW 14.3 Plt Count 188 Neut % (Auto) 73.9 Lymph % (Auto) 17.3 L Stanley % (Auto) 7.7 Eos % (Auto) 0.7 L Baso % (Auto) 0.4 Neut # (Auto) 6600 Lymph # (Auto) 1500 Stanley # (Auto) 700 Eos # (Auto) 100 Baso # (Auto) 0 SARS-CoV-2 (PCR) Negative Blood Type B Positive Antibody Screen Negative Assessment and Plan Assessment and Plan Assessment and Plan narrative: 35yo at 40w3d here for IOL due to AMA. Pt received 2 doses of cytotec overnight. Waters score currently 7. GBS positive, Rh positive. - Expectant management, anticipate - FHT reassuring - GBS positive, penicillin prophylaxis initiated already and adequate - Epidural for pain control when desired - Start pitocin, titrate as tolerated
[2021-02-06] MEDS: PENICILLIN G POTASSIUM 3,000,000 UNIT/50 ML FROZ.PIGGY 100 UNIT IV ×2 (07:43→11:20)
[2021-02-06] MEDS: OXYTOCIN PREMIX 30 UNIT/500 ML PLAST..BAG IV (08:22)
[2021-02-06] MEDS: LACTATED RINGERS 1,000 ML 100 ML IV (12:23)
--- NOTE | 2021-02-06 12:54 | PM.OBPNLAB ---
Date/Time Date Patient Seen: 02/06/21 Time Patient Seen: 12:30 Pain Control Pain control: tolerating well Pelvic Exam Dilation (cm): 3 Effacement (%): 80 station: -2 Amniotic membrane status: Ruptured Comments: After informed consent, AROM performed with production of clear fluid Contractions Monitor mode: External Pitocin rate (mU/min): 5 Contraction frequency (min): 3 Contraction pattern: Irregular Status status: Category l Heart Rate Baseline: 130 Monitor Accelerations: Absent Monitor Decelerations: Absent Monitor Variability: Moderate Assessment and Plan Comments: 35yo at 40w3d here for IOL due to AMA. Pt received 2 doses of cytotec overnight, now on pitocin. AROM performed with production of clear fluid after receiving adequate GBS prophylaxis. GBS positive, Rh positive. - Expectant management, anticipate - FHT reassuring - GBS positive, penicillin prophylaxis initiated already and adequate - Epidural for pain control when desired - Continue pitocin, titrate as tolerated
[2021-02-06] MEDS: fentaNYL 100 MCG/2 ML INJ 50 MCG IV (13:32)
--- NOTE | 2021-02-06 15:57 | P.PCNOB_ITS ---
Labor & Delivery Delivery date: 02/06/21 Intrapartal Events: None Cervical ripening method: per misoprostal protocol Induction method: per pitocin protocol Delivery augmentation: rupture of membranes Delivery monitor: external FHT Route of delivery: Episiotomy description: None L&D Laceration Description: Perineal - 1st Degree Delivery repair: chromic (3-O) Estimated blood loss (mL): 200 Anesthesia Type: Epidural Complications: None Narrative: PROCEDURE: at 40w3d presented for IOL due to AMA and was admitted to Labor and Delivery. She received 2 doses of cytotec for induction. Pitocin was then started, and titrated to a maximum dose of 5mU. The patient progressed through the 1st stage over 2 hours. Pain was controlled with an epidural. After adequate GBS prophlaxis with penicillin, AROM was performed with production of clear fluid. The patient progressed through the 2nd stage over 18 minutes and delivered a viable male with APGARs 8/9 at 15:03 via without complications. Baby was delivered to maternal abdomen and the cord was cut and clamped after it stopped pulsating. The perineum and vagina were inspected with 1st degree laceration repaired with 3-O chromic due to bleeding PREPROCEDURE DIAGNOSIS: Intrauterine at 40w3d Hypothyroidism AMA GBS positive RH positive POSTPROCEDURE DIAGNOSIS: Intrauterine at 40w3d, delivered Same as preprocedure [place] Baby 1: gender: Male Presentation: vertex Position: Left Occiput Anterior Placenta delivery description: Spontaneous Cord Vessel Description: 3 Vessels and Nuchal Cord (x1, reduced at perineum) score (1 min): 8 score (5 min): 9 weight: 8 lb 12 oz Plan for aftercare: Routine care
[2021-02-06] MEDS: IBUPROFEN 600 MG TABLET PO (21:26)
[2021-02-07] MEDS: IBUPROFEN 600 MG TABLET PO ×2 (03:19→09:06)
[2021-02-07] MEDS: ACETAMINOPHEN 325 MG TABLET 650 MG PO (04:45)
[2021-02-07] MEDS: LEVOTHYROXINE 125 MCG TABLET PO (06:03)
--- NOTE | 2021-02-07 08:52 | PM.OBDS.1 ---
Discharge Providers Provider Date of admission: 02/05/21 17:57 Discharge Date: 02/07/21 Primary care physician: Rosa Kinsey MD Consults: 02/07/21 20:31 Consult to Copy Supervisor Routine Comment: Discharge provider: Rosa Kinsey MD Summary Hospital Course Date Patient Seen: 02/07/21 Time Patient Seen: 08:52 Diagnoses: 40w3d gestation GBS positive Rh positive Hypothyroidism Hospital Course: The patient presented for induction of labor for advanced maternal age. She received 2 doses of Cytotec and then Pitocin. AROM was performed with production of clear fluid. She had an epidural for pain control. She progressed to complete and had a spontaneous vaginal delivery of a viable baby boy. A first-degree perineal laceration was then repaired for hemostasis. Patient tolerated delivery well. , there were no complications. At the time of discharge she was voiding, ambulating, passing flatus without difficulty. She had had a bowel movement. Her lochia was decreasing appropriately. Her pain was adequately controlled. She was breast-feeding, and was seen by to help with latch. She will follow up in clinic in 6 weeks for her check. She is undecided regarding contraception, her is considering a vasectomy. Peripartum Data Infant Delivery Method: Natural Vaginal Laceration Description: Perineal - 1st Degree Episiotomy description: None Procedures: Spontaneous vaginal delivery complications: none [place] 1: Gender: Male Disposition of : home Discharge Diagnosis (1) Spontaneous vaginal delivery: Status: Acute (2) Advanced maternal age (AMA) in : Status: Acute Status at Discharge Cognitive/behavioral status at discharge: oriented Functional status at discharge: independent ambulation Overall status at discharge: patient is progressing back to baseline Time Spent with Patient Time attestation: Total time spent providing and/or coordinating discharge services: Objective Labs Result Diagrams: 02/05/21 18:35 Exam Narrative Exam Narrative: Gen: NAD, sitting comfortably in bed, appears well CV: RRR, no murmurs Resp: clear to auscultation bilaterally Abd: soft, appropriately tender, fundus firm and below the umbilicus, nondistended Ext: no edema Discharge Plan Discharge Plan Patient Disposition: Home Discharge orders & Medications Prescriptions: Continued levothyroxine 125 mcg tablet See Rx Instructions .ROUTE .COMPLEX Qty: 30 RF: 3 prenat.vits,srinivasa,wug-dgpw-[id number] Tablet 1 tab PO DAILY RF: 0 cholecalciferol (vitamin D3) 25 mcg (1,000 unit) capsule 25 mcg PO DAILY RF: 0 Follow up/Referrals: Rosa Kinsey MD [Primary Care Provider] - 6 Weeks Diet/Activity/Treatments Diet: Diet as Tolerated and Regular Skin/Wound/Dressing Care Report to your healthcare provider any signs of infection, such as:: chills, fever, increased pain and unusual drainage Visit Report/Discharge Packet Instructions: DI for Labor and Delivery, Vaginal Visit Report Forms: Patient Portal/API, Stroke Signs & Symptoms Discharge Data Primary Care Provider: Rosa Kinsey
[2021-02-07] MEDS: DOCUSATE 100 MG CAPSULE PO (09:06)
[2021-02-07] MEDS: PRENATAL VIT,CALC/IRON/FOLIC 1 TABLET 1 TAB PO (09:06)
[2021-02-07 15:06] VITALS: BP 100/62; PULSE 63; RESP 16; TEMP 36.1
[2021-02-07] MEDS: MEASLES,MUMPS,RUBELLA VACC/PF 0.5 ML VIAL SUBCUT (15:37)
== END 2021-02-07 16:20 | disposition home or self-care (01) | DRG 807 ==
PROVIDERS: Admitting Provider Family Medicine; PCP Family Medicine; Referring Provider Family Medicine; Visit Provider Family Medicine
DX: O99.824 Streptococcus B carrier state complicating childbirth (principal); Z37.0 Single live birth; Z3A.40 40 weeks gestation of pregnancy; O99.284 Endocrine, nutritional and metabolic diseases complicating childbirth; E03.9 Hypothyroidism, unspecified; O70.0 First degree perineal laceration during delivery; Z20.822 Contact with and (suspected) exposure to COVID-19
CPT/HCPCS: 01967; 36415; 59050; 59400; 85025; 86850; 86900; 86901; 87635; C9803; G0379; J2540; J2590; J3010

== ENCOUNTER → 2021-03-08 15:14 | Outpatient (CLI) | payer OTHER, SELFPAY ==
[2021-03-08 16:33] LABS: Thyroid Stimulating Hormone 0.261 uIU/mL (0.47-4.68)
== END ==
PROVIDERS: PCP Family Medicine; Referring Provider Family Medicine; Visit Provider Family Medicine
DX: E03.9 Hypothyroidism, unspecified (principal)
CPT/HCPCS: 36415; 84443

== ENCOUNTER → 2021-04-09 12:39 | Outpatient (CLI) | payer OTHER, SELFPAY ==
[2021-04-09 14:59] LABS: Thyroid Stimulating Hormone 1.81 uIU/mL (0.47-4.68)
== END ==
PROVIDERS: PCP Family Medicine; Referring Provider Family Medicine; Visit Provider Family Medicine
DX: E03.9 Hypothyroidism, unspecified (principal)
CPT/HCPCS: 36415; 84443

== ENCOUNTER → 2021-05-30 14:35 | Outpatient (CLI) | payer OTHER, SELFPAY ==
[2021-05-30 16:34] LABS: Thyroid Stimulating Hormone 5.39 uIU/mL (0.47-4.68)
== END ==
PROVIDERS: PCP Family Medicine; Referring Provider Family Medicine; Visit Provider Family Medicine
DX: E03.9 Hypothyroidism, unspecified (principal)
CPT/HCPCS: 36415; 84443

== ENCOUNTER → 2022-02-05 09:53 | Outpatient (CLI) | payer OTHER, SELFPAY ==
[2022-02-05 14:49] LABS: Thyroid Stimulating Hormone 2.87 uIU/mL (0.47-4.68)
[2022-02-08 14:45] LABS: QuantiFERON Mitogen Value >10.00 IU/mL (.); QuantiFERON Nil Value 0.01 IU/mL (.); QuantiFERON TB Gold Plus Negative (Negative); QuantiFERON TB1 Ag Value 0.01 IU/mL (.)
== END ==
PROVIDERS: PCP Family Medicine; Referring Provider Family Medicine; Visit Provider Family Medicine
DX: Z11.9 Encounter for screening for infectious and parasitic diseases, unspecified (principal); E03.9 Hypothyroidism, unspecified
CPT/HCPCS: 36415; 84443; 86480

== ENCOUNTER → 2022-06-11 09:04 | Outpatient (CLI) | payer OTHER, SELFPAY ==
[2022-06-11 10:27] LABS: Add Manual Diff / Slide Review NO; Basophils Absolute Auto 0 /uL (0-100); Basophils Percent Auto 0.3 % (0-2); Eosinophils Absolute Auto 200 /uL (0-450); Eosinophils Percent Auto 2.6 % (2-4); Hematocrit 41.2 % (36-46); Hemoglobin 13.8 g/dL (12.0-16.0); Lymphocytes Absolute Auto 1800 /uL (1100-4500); Lymphocytes Percent Auto 28.4 % (25-40); Mean Corpuscular HGB Conc 33.5 % (30-36); Mean Corpuscular Hemoglobin 29.2 PG (26-34); Mean Corpuscular Volume 87.1 fL (80-100); Monocytes Absolute Auto 500 /uL (0-900); Monocytes Percent Auto 7.3 % (3-14); Neutrophils Absolute Auto 3900 /uL (1500-7000); Neutrophils Percent Auto 61.4 % (50-75); Platelet Count 254 X10^3/uL (150-400); Red Blood Cell Count 4.73 X10^6/uL (4.0-5.2); Red Cell Distribution Width 13.5 % (11.6-14.8); White Blood Cell Count 6.3 X10^3/uL (4.5-11.0)
[2022-06-11 11:12] LABS: Alanine Aminotransferase 17 IU/L (<35); Albumin 4.3 g/dL (3.5-5.0); Albumin Globulin Ratio 1.5 (1.0-2.8); Alkaline Phosphatase 58 U/L (38-126); Aspartate Aminotransferase 22 IU/L (14-36); BUN Creatinine Ratio 16.9 (6-22); Bilirubin Total 0.5 mg/dL (0.2-1.3); Blood Urea Nitrogen 11 mg/dL (7-17); Calcium 8.9 mg/dL (8.4-10.2); Carbon Dioxide 27 mmol/L (22-32); Chloride 102 mmol/L (98-107); Cholesterol 184 mg/dL (140-199); Estimated Glomerular Filt Rate > 60 mL/min (>60); Globulin 2.9 g/dL (1.7-4.1); Glucose 91 mg/dL (70-100); HDL Cholesterol 60 mg/dL (40-60); HEMOLYSIS < 15 (0-50); LDL Cholesterol Calculated 107 mg/dL (<100); Potassium 4.7 mmol/L (3.4-5.1); Sodium 140 mmol/L (137-145); Total Protein 7.2 g/dL (6.3-8.2); Triglycerides 87 mg/dL (35-150)
[2022-06-11 11:42] LABS: TSH w/ Reflex to FT4 4.89 uIU/mL (0.47-4.68)
[2022-06-11 11:43] LABS: Ferritin 22 ng/mL (6-137)
[2022-06-11 12:06] LABS: Free T4, Direct Thyroxine 1.43 ng/dL (0.78-2.19)
== END ==
PROVIDERS: PCP Family Medicine; Referring Provider Family Medicine; Visit Provider Family Medicine
DX: E03.9 Hypothyroidism, unspecified (principal)
CPT/HCPCS: 36415; 80053; 80061; 82728; 84439; 84443; 85025

== ENCOUNTER → 2023-08-04 11:23 | Outpatient (CLI) | payer OTHER, SELFPAY | PROVIDERS: Referring Provider Family Medicine; Visit Provider Family Medicine | DX: Z23 Encounter for immunization (principal) | CPT/HCPCS: 90471; 90686 ==

== ENCOUNTER → 2024-01-11 11:36 | Outpatient (CLI) | payer OTHER, SELFPAY ==
[2024-01-11 12:45] LABS: Alanine Aminotransferase 20 IU/L (<35); Albumin 4.3 g/dL (3.5-5.0); Albumin Globulin Ratio 1.6 (1.0-2.8); Alkaline Phosphatase 45 U/L (38-126); Aspartate Aminotransferase 23 IU/L (14-36); BUN Creatinine Ratio 21.4 (6-22); Bilirubin Total 0.4 mg/dL (0.2-1.3); Blood Urea Nitrogen 12 mg/dL (7-17); Calcium 9.3 mg/dL (8.4-10.2); Carbon Dioxide 30 mmol/L (22-32); Chloride 105 mmol/L (98-107); Estimated Glomerular Filt Rate > 60 mL/min (>60); Globulin 2.7 g/dL (1.7-4.1); Glucose 96 mg/dL (70-100); HEMOLYSIS < 15 (0-50); Potassium 3.9 mmol/L (3.4-5.1); Sodium 139 mmol/L (137-145)
[2024-01-11 13:34] LABS: Vitamin B12 859 pg/mL (239-931)
[2024-01-11 13:39] LABS: Free T4, Direct Thyroxine 1.14 ng/dL (0.78-2.19)
[2024-01-11 17:27] LABS: Vitamin D 25 Hydroxy (D3) 31.4 ng/mL (30.0-100.0)
== END ==
PROVIDERS: PCP Family Medicine; Referring Provider Family Medicine; Visit Provider Family Medicine
DX: E03.9 Hypothyroidism, unspecified (principal); E56.9 Vitamin deficiency, unspecified
CPT/HCPCS: 36415; 80053; 82306; 82607; 84439; 84443